=== PATIENT | male | born 2000 | race African-American/Black ===

== ENCOUNTER 2020-03-06 07:06 | Observation (INO) ==
[2020-03-06] MEDS ORDERED: ZOFRAN IV ONE (08:21)
[2020-03-06] MEDS ORDERED: MORPHINE IV ONE (08:21)
[2020-03-06] MEDS ORDERED: NS 1,000 ML IV ONE ×2 (08:21→13:25)
[2020-03-06 08:22] LABS: BASO# 0.01 X1000 (0.0-0.2); BASO% 0.1 % (0.0-0.8); EOS# 0.03 X1000 (0.0-0.7); EOS% 0.2 % (0.0-10.0); HEMATOCRIT 40.2 % (42.0-52.0); HEMOGLOBIN 14.6 g/dL (14.0-18.0); IMM GRAN# 0.04 X1000 (0.0-0.04); IMM GRAN% 0.3 % (0.0-0.5); LYMPH# 0.72 X1000 (1.2-3.4); LYMPH% 4.9 % (20.5-51.1); MCH 29.8 PG (27-31); MCHC 36.3 g/dL (33-37); MONO# 0.73 X1000 (0.11-0.59); MPV 10.8 FL (7.4-10.4); NEUT# 13.18 X1000 (1.4-6.5); NEUT% 89.5 % (42.2-75.2); PLT 258 X1000 (130-400); RDW 15.2 % (11.5-14.5); WBC 14.71 X1000 (4.8-10.8)
--- NOTE | 2020-03-06 08:26 | PROVIDER DOCUMENTATION ---
HPI-General Adult - General Chief Complaint: N/V/D Stated Complaint: N/V/D Time Seen by Provider: 03/06/20 07:07 Source: patient Allergies/Adverse Reactions: Patient Allergies Allergy/AdvReac Type Severity Reaction Status Date / Time No Known Allergies Allergy Verified 03/02/20 11:19 Home Medications: Home Medication List Medication Instructions Recorded Confirmed Last Taken Type NK [No Home Medications] 10/29/19 03/06/20 Unknown History - History of Present Illness -Gen Adult Nature of Presenting Problems: normally healthy 19 yo reports n/v/diarrhea thru the night. severe crampy lower quadrant pains, very restless. no s/o dysuria or voiding problems. no fever. no prior. Review of Systems - Adult - REVIEW OF SYSTEMS - ADULT Constitutional: reports: no symptoms reported. denies: chills, fever, fatique Eyes: reports: no symptoms reported Ears, Nose, Mouth & Throat: reports: no symptoms reported Cardiovascular: reports: no symptoms reported. denies: chest pain Respiratory: reports: no symptoms reported. denies: cough Gastrointestinal: reports: see HPI Genitourinary: reports: see HPI Musculoskeletal: reports: no symptoms reported Integumentary: reports: no symptoms reported Neurological: reports: no symptoms reported Psychiatric: reports: no symptoms reported Endocrine: reports: no symptoms reported Hematologic/Lymphatic: reports: no symptoms reported Allergic/Immunologic: reports: no symptoms reported All Other Systems: Reviewed and Negative Past History - Adult - PAST MEDICAL HISTORY-ADULT Review of Records: reports: Nursing Assessment Review, Medications Reviewed, Social history reviewed & non-contributory. Major Childhood Illnesses: reports: denies history Cardiovascular: reports: denies history Respiratory: reports: denies history Gastrointestinal: reports: denies history Obstetrical/Gynecological: reports: denies history Genitourinary: reports: denies history Musculoskeletal: reports: denies history Neurological: reports: denies history Endocrine/Immune: reports: denies history Other Conditions: reports: denies history - IMMUNIZATION STATUS Childhood Immunizations: See Nurse Assessment Flu Vaccine: See Nurse Assessment - FAMILY HISTORY Family History: reviewed, not pertinent Physical Exam-General - PHYSICAL EXAM-ADULT Initial Vital Signs Reviewed: Yes - CONSTITUTIONAL General Appearance: appears well, alert - EYES Eyes: PERRL/EOMI, pink conjunctivae - HEAD, EARS, NOSE, MOUTH & THROAT HENMT: normocephalic/atraumatic, moist mucous membranes - NECK Neck: non-tender, full range of motion, supple - RESPIRATORY Respiratory: chest non-tender, lungs clear, normal breath sounds - CARDIOVASCULAR Cardiovascular: normal peripheral pulses, regular rate, rhythm, no murmur - GASTROINTESTINAL (ABDOMEN) Abdominal Exam: normal bowel sounds, tenderness (RLQ > LLQ on initial exam, on 2nd exam after pain better, tnderness to left of umbilicus). 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, grossly normal, no motor/sensory deficits - PSYCHIATRIC Psych/Mental Status: normal thought content, oriented x 3, anxious Progress - PLAN OF CARE/RESULTS Progress/Plan/Lab Results: Vital Signs - 8 hr 03/06/20 07:07 Temperature 98.5 F Pulse Rate 65 Respiratory Rate 18 Blood Pressure 122/65 O2 Sat by Pulse Oximetry 100 Laboratory Results - last 24 hr 03/06/20 07:43 WBC 14.71 H RBC 4.90 Hgb 14.6 Hct 40.2 L MCV 82.0 MCH 29.8 MCHC 36.3 RDW Std Deviation 15.2 H Plt Count 258 MPV 10.8 H Immature Gran % (Auto) 0.3 Neut % (Auto) 89.5 H Lymph % (Auto) 4.9 L Hanson % (Auto) 5.0 Eos % (Auto) 0.2 Baso % (Auto) 0.1 Immature Gran # (Auto) 0.04 Neut # (Auto) 13.18 H Lymph # (Auto) 0.72 L Hanson # (Auto) 0.73 H Eos # (Auto) 0.03 Baso # (Auto) 0.01 Orders Category Date Time Status CT ABD/PELVIS W/IV CONT ONLY [CT] Stat Exams 03/06/20 08:21 Ordered flat [FLAT/UPRIGHT ABD/1 VIEW CHEST] [RAD] Stat Exams 03/06/20 08:11 Stop Req CBC WITH ELECTRONIC DIFF [HEME] Stat Lab 03/06/20 07:43 Results COMPREHENSIVE METABOLIC PANEL [CHEM] Stat Lab 03/06/20 07:43 Received LIPASE [CHEM] Stat Lab 03/06/20 08:22 Uncollected URINALYSIS W/POSS RFLX CULT [URINALYSIS] Stat Lab 03/06/20 08:22 Uncollected URINE DRUG SCREEN PL Stat Lab 03/06/20 08:22 Uncollected Morphine Med 03/06/20 08:21 Once 4 mg IV NOW ONE Ns 1000 ml IV Bolus X1 Med 03/06/20 08:21 Ordered 0.9% Sodium Chloride Inj [Ns] 1,000 ml IV 999 mls/hr Ondansetron [Zofran] Med 03/06/20 08:21 Once 4 mg IV NOW ONE Result Diagrams: 03/06/20 07:43 03/06/20 07:43 - REASSESSMENT Reassessment #1 Time Reassessed: 09:56 Status: improving (PAIN A GOOD BIT BETTER. ABLE TO DO A BETTER EXAM NOW NOT THRASHING IN BED. NOT TENDER TAWNY LOWER QUADRANTS. MILD TENDER JUST LEFT OF UMBILICUS. NO UMBILICAL HERNIA. SCARS OF BILAT ING HERNIA REPOSIR BUT NO INQUINAL BULGE OR TENDERNESS. UPPER QUADRANTS NOT TENDER. JUST NOW ABLE TO VOID URINE. NOTE CT W/O OBVIOUS PATHOLOGY. NOTE WBC 15K) Reassessment #2 Time Reassessed: 11:21 Status: unchanged (note pyuria, leukocytosis, hypokalemia) - CT/MRI 1 CT Study: Abdomen, Pelvis Impression: See EMR Report - CONSULTS/PCP/HOSPITALIST Notification #1 *Consult/PCP/Hospitalist*: dr Wilson, surgery Time Discussed: 11:19 Consult Disposition: Admit (at [facility] to dr Wilson) Departure - Departure Date of Disposition Decision: 03/06/20 Time of Disposition Decision: 11:20 DIAGNOSIS: Pyuria, Hypokalemia Abdominal pain Qualifiers: Abdominal location: unspecified location Qualified Code(s): R10.9 - Unspecified abdominal pain Disposition: ADMITTED INPATIENT 09 Certified Medical Emergency: Emergent Condition: Stable Referrals and Follow-Ups: None,PCP [Primary Care Provider] - - Critical Care Note This patient required my direct & personal management of CC.: Yes Total Time (mins): 30 Critical Care Statement: This patient required my direct personal management to treat or rule out processes, the absence of which, could potentiallly result in sudden, clinically significant life or limb threatening deterioration. Attestation - Physician/ DINA Attestation Patient care was provided by Advanced Practice Provider:: No The physician spent face to face time with patient:: Yes Advanced Practice Provider documentation review:: Supervising physician onsite and consulted in the evaluation and care of this patient. The physician did have a face to face encounter with the patient.
[2020-03-06 08:28] LABS: AGAP 16; ALBUMIN 4.8 g/dL (3.5-5.0); ALKALINE PHOSPHATASE 72 U/L (32-122); BUN 10 mg/dL (8-22); CALCIUM 9.5 mg/dL (8.8-10.2); CHLORIDE 100 mmol/L (98-107); COSMO 279; CREATININE 1.1 mg/dL (0.7-1.2); ESTIMATED GFR > 60; GLUCOSE 115 mg/dL (70-104); GOT 14 U/L (10-34); GPT 6 U/L (10-44); SODIUM 140 mmol/L (136-145); TCO2 24 mmol/L (25-35); TOTAL PROTEIN 7.4 g/dL (6.3-8.3)
--- NOTE | 2020-03-06 09:05 | Diag Imaging Result Doc PS360 ---
EXAM: CT ABD/PELVIS W/IV CONT ONLY HISTORY: rlq pain/?renal colic TECHNIQUE: CT abdomen and pelvis with intravenous contrast, but without oral contrast. COMPARISON: None. FINDINGS: No calcified gallstones or adjacent inflammation. Normal liver, spleen, pancreas, adrenal glands, and kidneys. No hydronephrosis. Normal aorta. No bowel obstruction. The appendix is poorly seen in this patient without oral contrast and who is also thin. No abscess in the right lower quadrant. The urinary bladder is not distended. IMPRESSION: Negative exam This exam was performed using automated exposure control, adjustment of mA or kV according to patient size, and/or use of iterative reconstruction technique. Electronically signed by Maninder Valdez 03/06/2020 9:03 AM
[2020-03-06] MEDS ORDERED: POTASSIUM CHLORIDE 40 MEQ/SWI 40 MEQ/100 ML IVPB IV ONE (09:47)
[2020-03-06 10:02] LABS: URINE SOURCE CLEAN CATCH
[2020-03-06 10:08] LABS: BILIRUBIN URINE NEGATIVE (NEGATIVE); BLOOD URINE NEGATIVE (NEGATIVE); COLOR YELLOW; GLUCOSE URINE NEGATIVE (NEGATIVE); KETONE URINE 10 mg/dL (NEGATIVE); LEUKOCYTES URINE NEGATIVE (NEGATIVE); NITRITE URINE NEGATIVE (NEGATIVE); TURBIDITY URINE CLEAR (CLEAR); UROBILINOGEN URINE NORMAL (NORMAL)
[2020-03-06 10:09] LABS: UR EPITHELIAL CELLS >10 /HPF (<10); URINE BACTERIA NEGATIVE /HPF; URINE RBC <10 /HPF (<10); URINE WBC TNTC /HPF (<10)
[2020-03-06 10:13] LABS: PROTEIN URINE 50 mg/dL (NEGATIVE)
[2020-03-06 10:16] LABS: UR AMPHETAMINES QUAL NONE DETECTED (NONE DETECT); UR BARBITUATES QUAL NONE DETECTED (NONE DETECT); UR BENZODIAZEPIN QUAL NONE DETECTED (NONE DETECT); UR CANNABINOIDS QUAL PRESUMPTIVE POSITIVE (NONE DETECT); UR COCAINE QUAL NONE DETECTED (NONE DETECT); UR METHADONE QUAL NONE DETECTED (NONE DETECT); UR METHAMPHETAMINE QUAL NONE DETECTED (NONE DETECT); UR OPIATES QUAL PRESUMPTIVE POSITIVE (NONE DETECT); UR OXYCODONE QUAL NONE DETECTED (NONE DETECT); UR PCP QUAL NONE DETECTED (NONE DETECT); UR PROPOXYPHENE QUAL NONE DETECTED (NONE DETECT); UR TCA QUAL NONE DETECTED (NONE DETECT)
[2020-03-06] MEDS ORDERED: ZOSYN 4.5 GM in NS 100 ML IV ONE (11:25)
[2020-03-06] MEDS ORDERED: ZOFRAN IV PRN (13:25)
[2020-03-06] MEDS: MORPHINE IV PRN ×4 (13:45→21:05)
--- NOTE | 2020-03-06 15:42 | HISTORY AND PHYSICAL ---
CHIEF COMPLAINT: Abdominal pain and diarrhea. HISTORY OF PRESENT ILLNESS: This is a 19-year-old male who began having severe crampy lower abdominal pain with associated nausea, vomiting, and diarrhea. He had multiple episodes of nausea and vomiting last night and has had multiple episodes of diarrhea yesterday and today. He describes it as nonbloody. His pain had been quite severe earlier today, but has been relieved after receiving pain medicine in the ER. He is feeling a good bit better now. The pain is mostly located on the left side of his lower abdomen. Nothing really made it worse. He denies any fever. He does report by history that he had chicken from [employer] 2 days ago along with several family members; 2 other family members became sick with nausea, vomiting, abdominal pain and diarrhea the day before yesterday. However, their illness was not as severe as his. In addition, he had some barbecue yesterday from a local barbecue stand and he began feeling sick shortly after that. He does also reports some dysuria that began yesterday, but he denies a foul odor to his urine or a cloudiness to his urine. He has never had a urinary tract infection. He has not traveled anywhere recently. PAST MEDICAL HISTORY: None. PAST SURGICAL HISTORY: Bilateral inguinal hernia repair as an infant. HOME MEDICATIONS: None. ALLERGIES: No known drug allergies. FAMILY HISTORY: Reviewed and noncontributory. SOCIAL HISTORY: He does smoke as well as smokes weed occasionally. He denies alcohol. He denies any illicit drug use, but says he took a stomach medicine from his mom yesterday. REVIEW OF SYSTEMS: Ten systems reviewed and negative except as noted above. PHYSICAL EXAMINATION: VITAL SIGNS: Temperature 98.7 degrees, pulse 63, respirations 20, blood pressure 90/44, O2 saturation 99%. GENERAL: A well-developed, well-nourished male in no distress who looks his stated age. HEENT: Normocephalic, atraumatic. Extraocular muscles intact. Pupils equal, round, reactive to light. Sclerae anicteric. Moist mucous membranes. NECK: Supple. No thyromegaly. CV: Regular rate and rhythm. RESPIRATORY: Bilateral breath sounds. No work of breathing. GI: Soft, mild tenderness, especially in the left lower abdomen and to the left of the umbilicus, but no rebound. No guarding. No organomegaly or mass. No hernias. EXTREMITIES: No clubbing, cyanosis, or edema. MUSCULOSKELETAL: Moves all extremities equally and well. LABORATORY: White blood cell count is 14.7, hemoglobin 14, hematocrit 40%, neutrophils 89.5%. Platelet count 258,000. Electrolytes reviewed and notable for potassium of 3.0. Liver function tests are normal except for total bilirubin 1.4, lipase 18. Urinalysis is notable for too- [id number] white blood cells, however, negative bacteria and negative leukocytes. Urine drug screen is positive for opiates and cannabinoids. IMAGING: Abdominal and pelvis CT scan with IV contrast only shows no acute findings. The appendix is poorly seen in this patient without oral contrast. ASSESSMENT AND PLAN: A 19-year-old male with crampy lower abdominal pain, nausea, vomiting, diarrhea and leukocytosis after eating some chicken 2 days ago and barbecue yesterday, both of which could be the source. There were multiple other family members who ate the chicken that got sick prior to him, so I suspect acute food poisoning. He also is hypokalemic and was having severe abdominal pain with some concern of appendicitis. Therefore, he is being admitted for observation, hydration, empiric antibiotics and stool studies. We will recheck his white blood cell count tomorrow and physical exam. cc: Hua Wilson MD
[2020-03-06] MEDS: NS + KCL 40 MEQ 1,000 ML IV SCH (16:44)
[2020-03-07] MEDS: MORPHINE IV PRN ×2 (03:48→08:33)
[2020-03-07] MEDS: NS + KCL 40 MEQ 1,000 ML IV SCH (03:52)
[2020-03-07 06:37] LABS: BASO# 0.02 X1000 (0.0-0.2); BASO% 0.3 % (0.0-0.8); EOS# 0.01 X1000 (0.0-0.7); EOS% 0.1 % (0.0-10.0); HEMATOCRIT 36.7 % (42.0-52.0); LYMPH# 1.15 X1000 (1.2-3.4); LYMPH% 16.7 % (20.5-51.1); MCH 29.5 PG (27-31); MCHC 35.4 g/dL (33-37); MCV 83.2 FL (81-99); MONO# 0.53 X1000 (0.11-0.59); MONO% 7.7 % (1.7-9.3); MPV 10.7 FL (7.4-10.4); NEUT# 5.16 X1000 (1.4-6.5); NEUT% 75.2 % (42.2-75.2); PLT 217 X1000 (130-400); RBC 4.41 XMIL (4.7-6.1); RDW 16.4 % (11.5-14.5); WBC 6.87 X1000 (4.8-10.8)
[2020-03-07 07:26] LABS: AGAP 7; BUN 7 mg/dL (8-22); CALCIUM 8.5 mg/dL (8.8-10.2); CHLORIDE 105 mmol/L (98-107); COSMO 277; CREATININE 1.1 mg/dL (0.7-1.2); ESTIMATED GFR > 60; GLUCOSE 92 mg/dL (70-104); SODIUM 140 mmol/L (136-145); TCO2 28 mmol/L (25-35)
[2020-03-07 08:14] VITALS: BP 93/46
--- NOTE | 2020-03-07 09:33 | GENERAL SURGERY PROGRESS NOTE ---
DATE: 03/07/2020 SUBJECTIVE: The patient feels better. He does not have any severe abdominal pain, only mild left- sided discomfort. No nausea or vomiting. He did have a little diarrhea overnight. He is tolerating his clear liquids without any trouble. He overall feels much better. OBJECTIVE: Vitals: He is afebrile. Vital signs are stable. General: He is awake, alert, and oriented x3 in no acute distress. CV: Regular rate and rhythm. Respiratory: No work of breathing. Gastrointestinal: Soft, nondistended, mildly tender to the left of the umbilicus. No rebound or guarding. No mass. LABORATORY: White blood cell count 6.8, hemoglobin 13, hematocrit 36, platelet count 217,000. Electrolytes reviewed and unremarkable. His potassium is now 4.0. Microbiology is notable for negative stool culture, negative yersinia culture, negative urine culture. He does have many white blood cells in the stool. ASSESSMENT AND PLAN: A 19-year-old male, with probable acute food poisoning. He is improving. He will be discharged home today. He is instructed to gradually increase his diet and activity as tolerated and to follow up with me as needed for worsening abdominal pain, nausea, vomiting, fever, diarrhea, etc. cc: Hua Wilson MD
== END 2020-03-07 09:49 | disposition home or self-care (01) ==
LOC: 4N 07:06 → P.ED 07:06 → OBSVTOIN 12:59
PROVIDERS: ADMIT Surgery; ATTEND Surgery